=== PATIENT | male | born 1960 | race Caucasian/White ===

== ENCOUNTER 2016-09-29 12:23 | Emergency (ER) | payer MEDICARE, OTHER ==
--- NOTE | 2016-09-29 12:59 | ED Physician Chart ---
Chief Complaint/HPI - Patient Information Date Seen:: 09/29/16 Time Seen:: 12:45 Chief Complaint:: Fast heart rate to 99 History of Present Illness:: Pt. usually has pulse in 70's, but 90 - 99 since yesterday afternoon. Takes Metformin for DM and Lisinopril for HTN. Stopped Glyburide about 2 weeks. No coffee or stimulants. Non-smoker. Much emotional stress. Mother had "heart attack", lost best friend, etc.. No pain, no dyspnea, no "dizziness" or orthostasis. No neuro sx's. Otherwise nl., ambulatory, only concerned about pulse. Allergies:: Allergies Allergy/AdvReac Type Severity Reaction Status Date / Time No Known Allergies Allergy Verified 09/29/16 12:40 Vitals:: Vital Signs - 8 hr 09/29/16 12:23 Temp 98.2 F HR 124 RR 18 BP 171/96 O2 Sat % 99 Historian:: Patient Review of Systems - Review of Systems General/Constitutional: No fever, No chills, No weakness Skin: No skin lesions Head: No headache Eyes: No loss of vision ENT: No earache, No sore throat Neck: No neck pain Cardio Vascular: No chest pain, No palpitations (No irregular or chest sensation , only noted rapid pulse. No chest pain), No orthopnea Pulmonary: No SOB GI: No nausea G/U: No dysuria Musculoskeletal: No bone or joint pain, Other (hx back pain) Psychiatric: No prior psych history Hematopoietic: No bruising Allergic/Immuno: No urticaria Neurological: No syncope, No focal symptoms Past Medical History - Past Medical History Past Medical History: DM Family History: HTN Social History: Non Smoker, Alcohol (1 beer per month) Surgical History: other (low back surg, knee surg both knees) Psychiatricy History: None Family Medical History - Family Member Mother Other Medical History: heart attack, mother Physical Exam - Physical Examination General/Constitutional: Awake, Well-developed, well-nourished, Alert, No distress, GCS 15, Non-toxic appearing, Ambulatory Head: Atraumatic Eyes: Lids, conjuctiva normal Skin: Nl inspection Neck: Nontender Respiratory: Nl effort/Exclusion, Clear to Auscultation, No Wheeze/Rhonchi/Rales Cardio Vascular: RRR, No murmur, gallop, rubs GI: Normal BS's : No CVA tenderness Extremities: Full ROM Neuro/Psych: Alert/oriented Labs/Radiology/EKG Results - Lab Results Results: EKG: NSR at 98. Nl. axis. ? L atrial enlargement. No acute ST change. Good R wave progression. CXR: Nl heart size. No obvious infiltrate. CBC unremarkable.CMP unremarkable. CPK, CKMB and trop. normal. TSH normal. Pt. will f/u with PCP on pending labs. ED Septic Shock - . Is Septic Shock (SBP<90, OR Lactate>4 mmol\\L) present?: No - <6hrs of presentation: Vital Signs: Vital Signs - 8 hr 09/29/16 12:23 Temp 98.2 F HR 124 RR 18 BP 171/96 O2 Sat % 99 Reassessment (Disposition) - Diagnosis Diagnosis:: Dx: Acute borderline tachycardia, associated with anxiety, stress. - Aftercare/Follow up Instructions Aftercare/Follow-Up Instructions:: Counseled pt regarding lab results/diagnosis & need follow up Medication Prescribed:: Rx: Ativan 1 mg one po tid prn. No driving. Disp. #12. No refill. - Patient Disposition Discharge/Transfer:: Home Condition at Disposition:: Stable ED Discharge Plan - Patient Disposition Instructions: Anxiety and Panic Attacks, [id number], Cardiac Arrhythmia
[2016-09-29 13:07] LABS: % BASOPHILS 0.7 % (0.0-2.0); % EOSINOPHILS 3.4 % (0.0-5.0); % LYMPHOCYTES 19.6 % (20.0-50.0); % MONOCYTES 7.1 % (2.0-10.0); % NEUTROPHILS 69.2 % (40.0-80.0); HEMATOCRIT 42.3 % (39.0-49.0); HEMOGLOBIN 14.1 gm/dL (13.2-17.3); MEAN CELL VOLUME 88.6 fl (80-99); MEAN CORPUSCULAR HEMOGLOBIN 29.6 pg (26.0-30.0); MEAN CORPUSCULAR HGB CONC 33.4 pg (28.0-36.0); MEAN PLATELET VOLUME 7.9 fl; NEUTROPHILE ABSOLUTE 3.8 Th/cmm (1.8-8.0); PLATELET COUNT 222 Th/cmm (150-400); RED BLOOD COUNT 4.78 Mil/cmm (4.30-5.70); RED CELL DISTRIBUTION WIDTH 12.1 % (11.5-20.0); WHITE BLOOD COUNT 5.5 Th/cmm (4.8-10.8)
[2016-09-29 13:21] LABS: ALB/GLOB RATIO 1.3 (1.0-1.8); ALKALINE PHOSPHATASE 32 U/L (34-104); ANION GAP 7.4 (7.0-16.0); BILIRUBIN,TOTAL 0.8 mg/dL (0.3-1.0); BUN - UREA NITROGEN 21 mg/dL (7-25); CALCIUM SERUM 9.3 mg/dL (8.6-10.3); CARBON DIOXIDE 27.8 mEq/L (21.0-31.0); CHLORIDE 103 mEq/L (98-107); GLUCOSE 265 mg/dL (70-105); POTASSIUM SERUM 4.2 mEq/L (3.5-5.1); SGOT 25 U/L (13-39); SGPT/ALT 41 U/L (7-52); SODIUM SERUM 134 mEq/L (136-145)
[2016-09-29 13:26] LABS: CREATINE KINASE MB 3.4 ng/mL (0.6-6.3)
--- NOTE | 2016-09-29 14:00 | Diagnostic Imaging Report ---
Portable chest x-ray History: Cough Allowing for portable technique the heart size is normal. No focal pulmonary parenchymal processes. No hilar or mediastinal abnormalities. Impression: No acute abnormalities.
== END 2016-09-29 14:55 | disposition home or self-care (01) ==
LOC: ER 12:23
DX: R00.0 Tachycardia, unspecified (principal); F41.9 Anxiety disorder, unspecified; E11.9 Type 2 diabetes mellitus without complications
CPT/HCPCS: 36415-UA; 71010-TC; 80053-TC; 82550-TC; 82553; 83036-90; 84443-TC; 84479-90; 84484-TC; 85025-TC; 93005

== ENCOUNTER 2018-01-15 09:14 | Emergency (ER) | payer MEDICARE ==
--- NOTE | 2018-01-15 10:03 | ED Physician Chart ---
ED Chief Complaint/HPI - Patient Information Date Seen:: 01/15/18 Time Seen:: 09:45 Chief Complaint:: dizziness History of Present Illness:: 57 yr old male with hx of dm recently changed to invokana with dizziness dayo when he stands up sugar last night was low 70 pt states that there is a family fued and much stress in the family his brother 2 wks ago from complications due to the diabetes pt denies nvd no fever or cough nochest or abd pain no headache no numbness or tingling Allergies:: Allergies Allergy/AdvReac Type Severity Reaction Status Date / Time No Known Allergies Allergy Verified 09/29/16 12:40 Vitals:: Vital Signs - 8 hr 01/15/18 09:20 Temp 97.7 F HR 97 RR 18 BP 166/78 O2 Sat % 98 ED Review of Systems - Review of Systems Neurological: Dizziness ED Past Medical History - Past Medical History Past Medical History: DM Family Medical History - Family Member Mother Hx Family Diabetes: Yes ED Labs/Radiology/EKG Results - Lab Results Results: Laboratory Tests 01/15/18 09:27 POC Glucose 157 H ED Assessment - Assessment General Assessment: dizziness and hypoglycemia in diabetic pt who was switched to invokana 2 wks ago ED Septic Shock - . Is Septic Shock (SBP<90, OR Lactate>4 mmol\L) present?: No - <6hrs of presentation: Vital Signs: Vital Signs - 8 hr 01/15/18 09:20 Temp 97.7 F HR 97 RR 18 BP 166/78 O2 Sat % 98 ED Reassessment (Disposition) - Diagnosis Diagnosis:: dizziness hypoglycemia
[2018-01-15] MEDS ORDERED: Sodium Chloride 0.9% 1,000 ML IV ONE (10:08)
[2018-01-15 10:23] LABS: % BASOPHILS 0.9 % (0.0-2.0); % EOSINOPHILS 5.1 % (0.0-5.0); % LYMPHOCYTES 18.8 % (20.0-50.0); % MONOCYTES 7.4 % (2.0-10.0); % NEUTROPHILS 67.8 % (40.0-80.0); BASOPHILE ABSOLUTE 0.1 Th/cumm (0-0.2); EOSINOPHILE ABSOLUTE 0.3 Th/cmm (0.1-0.4); HEMATOCRIT 36.5 % (41.0-60); HEMOGLOBIN 12.5 gm/dL (12-16); LYMPHOCYTE ABSOLUTE 1.1 Th/cmm (1.5-3.0); MEAN CELL VOLUME 87.9 fl (80-99); MEAN CORPUSCULAR HEMOGLOBIN 30.2 pg (26.0-30.0); MEAN CORPUSCULAR HGB CONC 34.4 pg (28.0-36.0); MEAN PLATELET VOLUME 7.5 fl; MONOCYTE ABSOLUTE 0.4 Th/cmm (0.3-1.0); NEUTROPHILE ABSOLUTE 3.7 Th/cmm (1.8-8.0); PLATELET COUNT 219 Th/cmm (150-400); RED BLOOD COUNT 4.15 Mil/cmm (4.30-5.70); RED CELL DISTRIBUTION WIDTH 11.8 % (11.5-20.0); WHITE BLOOD COUNT 5.6 Th/cmm (4.8-10.8)
[2018-01-15 10:37] LABS: ALB/GLOB RATIO 1.4 (1.0-1.8); ALBUMIN 3.9 gm/dL (4.2-5.5); ALKALINE PHOSPHATASE 40 U/L (34-104); ANION GAP 11.4 (7.0-16.0); BILIRUBIN,TOTAL 0.4 mg/dL (0.3-1.0); BUN - UREA NITROGEN 25 mg/dL (7-25); CALCIUM SERUM 9.2 mg/dL (8.6-10.3); CARBON DIOXIDE 24.5 mEq/L (21.0-31.0); CHLORIDE 103 mEq/L (98-107); CREATININE - SERUM 1.1 mg/dL (0.7-1.3); GFR AFRICAN-AMERICAN > 60.0 ml/min (>90); GFR NON AFRICAN-AMERICAN > 60.0 ml/min; GLUCOSE 189 mg/dL (70-105); POTASSIUM SERUM 3.9 mEq/L (3.5-5.1); SGOT 19 U/L (13-39); SGPT/ALT 25 U/L (7-52); SODIUM SERUM 135 mEq/L (136-145); TOTAL PROTEIN,SERUM 6.6 gm/dL (6.0-8.3)
[2018-01-15 11:14] LABS: URINE MICROSCOPIC INDICATED? YES; URINE SOURCE CLEAN C
[2018-01-15 11:17] LABS: URINE BILIRUBIN NEGATIVE (NEGATIVE); URINE BLOOD NEGATIVE (NEGATIVE); URINE GLUCOSE (UA) >=1000 mg/dL (NEGATIVE); URINE KETONE NEGATIVE (NEGATIVE); URINE LEUKOCYTE ESTERASE NEGATIVE (NEGATIVE); URINE NITRATE NEGATIVE (NEGATIVE); URINE PROTEIN NEGATIVE (NEGATIVE); URINE UROBILINOGEN 0.2 E.U./dL (0.2 - 1.0)
[2018-01-15 11:19] LABS: URINE CLARITY CLEAR (CLEAR); URINE COLOR YELLOW
[2018-01-15 11:23] LABS: URINE BACTERIA FEW /hpf (NONE SEEN); URINE EPITHELIAL CELLS RARE /lpf (FEW); URINE RBC NONE SEEN /hpf (0-5); URINE WBC NONE SEEN /hpf (0-5)
--- NOTE | 2018-01-16 07:44 | Diagnostic Imaging Report ---
Head CT without intravenous contrast Indication: Dizziness Comparison: None Technique: Axial images were obtained from the vertex to the skull base without IV contrast. Coronal reconstructions were made. Total DLP: [id number], [id number] FINDINGS: Images of the brain obtained without contrast demonstrate no evidence of an acute hemorrhage. The lemons-white matter differentiation is preserved. The ventricles and basal cisterns are patent. No mass effect or midline shift. No evidence of a skull fracture or focal soft tissue swelling. The visualized paranasal sinuses are clear. IMPRESSION: No acute intracranial abnormality.
[2018-01-16 20:46] LABS: A1C % 8.1 % (4.0-6.0)
== END 2018-01-15 12:40 | disposition home or self-care (01) ==
LOC: ER 09:14
DX: R42 Dizziness and giddiness (principal); E11.649 Type 2 diabetes mellitus with hypoglycemia without coma
CPT/HCPCS: 36415-UA; 70450-TC; 80053-TC; 81001-TC; 82948-90; 83036-90; 85025-TC; J7030